=== PATIENT | female | born 2000 | race Caucasian/White ===

== ENCOUNTER 2020-05-15 20:40 | Emergency (ER) | payer BC ==
--- NOTE | 2020-05-15 22:04 | EDM.PDOC ---
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, no other roommate a friend tested positive for COVID today and went home, pt spend the day with this individual 2d ago pt has had ST 8d with myalgias, MCLEAN, wekaness, nausea, dairrhea q1h [id number], D x 3 today, slgiht cough starts work at [employer] in 2d altho will need to postpone this taking classes in-person except for [employer] - Related Data Allergies Allergy/AdvReac Type Severity Reaction Status Date / Time Pollens Allergy Sneezing Uncoded 05/15/20 21:10 Home Meds: Home Meds Albuterol [Ventolin HFA] 1 puff INH Q4H PRN 08/12/13 [History] Omeprazole 20 mg PO DAILY 05/15/20 [History] PARoxetine HCL [Paroxetine HCl] 20 mg PO DAILY 05/15/20 [History] norgestimate-ethinyl estradioL [Trego-Linyah 28 Tablet] 1 each PO ASDIRECTED 05/15/20 [History] ED ROS GENERAL - Review of Systems Review Of Systems: See Below Constitutional: Reports: No Symptoms HEENT: Reports: Rhinitis Respiratory: Reports: Cough. Denies: Shortness of Breath Cardiovascular: Reports: No Symptoms Endocrine: Reports: No Symptoms GI/Abdominal: Reports: No Symptoms : Reports: No Symptoms Musculoskeletal: Reports: No Symptoms Skin: Reports: No Symptoms Neurological: Reports: No Symptoms Psychiatric: Reports: No Symptoms Hematologic/Lymphatic: Reports: No Symptoms Immunologic: Reports: No Symptoms ED EXAM, GENERAL - Physical Exam Exam: See Below Exam Limited By: No Limitations General Appearance: Alert, WD/WN, No Apparent Distress, Other (alert, nonill) Eye Exam: Bilateral Eye: Conjunctival Injection Ears: Normal External Exam, Normal Canal, Hearing Grossly Normal, Normal TMs Nose: Other (slight swell and crust of nares) Throat/Mouth: Normal Inspection, Normal Lips, Normal Teeth, Normal Gums, Normal Oropharynx, Normal Voice, No Airway Compromise Head: Atraumatic, Normocephalic Neck: Normal Inspection, Supple, Non-Tender, Full Range of Motion. No: Lymphadenopathy (R), Lymphadenopathy (L) Respiratory/Chest: No Respiratory Distress, Lungs Clear, Normal Breath Sounds, No Accessory Muscle Use, Chest Non-Tender Cardiovascular: Regular Rate, Rhythm, No Edema, No Gallop, No JVD, No Murmur, No Rub GI/Abdominal: Soft, Non-Tender, No Distention Back Exam: Normal Inspection, Full Range of Motion. No: CVA Tenderness (R), CVA Tenderness (L) Extremities: Normal Inspection, Non-Tender, No Pedal Edema Neurological: Alert, Oriented, CN II-XII Intact, Normal Cognition, Normal Gait, No Motor/Sensory Deficits Psychiatric: Normal Affect, Normal Mood Skin Exam: Warm, Dry, Intact, Normal Color, No Rash Lymphatic: No Adenopathy Course - Vital Signs Last Recorded V/S: Last Vital Signs Temp 36.6 C 05/15/20 20:55 Pulse 61 05/15/20 20:55 Resp 18 05/15/20 20:55 BP 132/68 05/15/20 20:55 Pulse Ox 100 05/15/20 20:55 - Orders/Labs/Meds Orders: Active Orders 24 hr Category Date Time Status CORONAVIRUS COVID-19, HORTENCIA Stat Lab 05/15/20 21:52 Ordered - Re-Assessments/Exams Free Text/Narrative Re-Assessment/Exam: 05/15/20 22:11 PE negative, however pt has had sxs x 8d c/w mild case of COVID, vss Departure - Departure Time of Disposition: 21:58 Disposition: Home, Self-Care 01 Condition: Good Clinical Impression: Exposure to COVID-19 virus - Discharge Information *PRESCRIPTION DRUG MONITORING PROGRAM REVIEWED*: Not Applicable *COPY OF PRESCRIPTION DRUG MONITORING REPORT IN PATIENT CHANTELLE: Not Applicable Instructions: Airborne Precautions, Contact Precautions Referrals: PCP,Unknown [Primary Care Provider] - Forms: ED Department Discharge, ED Return to Work/School Form Additional Instructions: Self quarantine in your room for 14 days whether the COVID test is positive or negative. No work, no in-person classes, no eating in dining [place]eda for 14 days. Use good handwashing. Maintain social distance of 6 feet from each other. Check with your student health department regarding additional school policies for COVID exposure. Sepsis Event Note (ED) - Evaluation Sepsis Screening Result: No Definite Risk - Focused Exam Vital Signs: Vital Signs Temp Pulse Resp BP Pulse Ox 05/15/20 20:55 36.6 C 61 18 132/68 100 - My Orders Last 24 Hours: My Active Orders 05/15/20 21:52 CORONAVIRUS COVID-19, HORTENCIA Stat - Assessment/Plan Last 24 Hours: My Active Orders 05/15/20 21:52 CORONAVIRUS COVID-19, HORTENCIA Stat
== END 2020-05-15 22:15 | disposition home or self-care (01) ==
LOC: FB.ED 20:40
DX: Z20.828 Contact with and (suspected) exposure to other viral communicable diseases (principal); Z91.09 Other allergy status, other than to drugs and biological substances; Z79.899 Other long term (current) drug therapy
CPT/HCPCS: 99284; U0002